=== PATIENT | female | born 1990 | race Caucasian/White ===

== ENCOUNTER 2022-05-27 20:40 | Emergency (ER) | payer OTHER ==
[~2022-05-27] VITALS: Ht 162.6 cm; Wt 83.0 kg
[2022-05-27 20:57] VITALS: BP 96/67
--- NOTE | 2022-05-27 21:04 | NUR ---
pt to lobby
--- NOTE | 2022-05-28 00:39 | NUR ---
PT TO BED 12
[2022-05-28 02:14] LABS: ALBUMIN 3.5 g/dL (3.4-5.0); ANION GAP 13.2 (8-16); CARBON DIOXIDE 28.7 mmol/L (21-32); CREATININE 0.6 mg/dL (0.6-1.3); POTASSIUM 3.9 mmol/L (3.5-5.1); TOTAL BILIRUBIN 0.5 mg/dL (0.0-1.0)
--- NOTE | 2022-05-28 03:13 | NUR ---
Ultrasound at bedside.
[2022-05-28] MEDS ORDERED: NAPR-54 PO (03:53)
[2022-05-28 04:30] VITALS: BP 106/58
--- NOTE | 2022-05-28 04:30 | NUR ---
Patient discharged V/S WNL. Written and verbal after care instructions given and explained. Patient alert, oriented and verbalized understanding of instructions. Ambulatory with steady gait. All questions addressed prior to discharge. ID band removed. Patient advised to follow up with PMD. Rx of Naproxen given. Patient educated on indication of medication including possible reaction and side effects. Opportunity to ask questions provided and answered.
== END 2022-05-28 04:30 | disposition home or self-care (01) ==
LOC: MED 20:40
DX: K80.20 Calculus of gallbladder without cholecystitis without obstruction (principal); Z79.1 Long term (current) use of non-steroidal anti-inflammatories (NSAID)
CPT/HCPCS: 36415; 71101; 76705; 80053; 83690; 99285; Q0092